=== PATIENT | female | born 1960 | race Caucasian/White ===

== ENCOUNTER 2016-10-13 15:47 | Emergency (ER) | payer OTHER ==
[2016-10-13] MEDS ORDERED: oxyCODONE HCL 5 MG TABLET PO ONE (16:12)
--- NOTE | 2016-10-13 16:15 | ERNOTE ---
Medical Problem HPI - General Chief Complaint: General Assessment Time Seen by Provider: 10/13/16 15:55 Source: patient Exam Limitations: no limitations - Immun/Allergies/Home Medications Immunizations: IMMUNIZATION HX Immunizations Up to Date Yes Allergies/Adverse Reactions: Allergies No Known Allergies Allergy (Unverified 10/13/16 16:08) - History of Present History Narrative: Patient is brought over from the psychiatric office for shortness of breath and problems with her leg. 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 Recently she has been weaned from the speaking valve to wearing a cap on the trach and having oxygen with a nasal canula for so many hours a day. This week she is up to five hour a day of wearing the cap and it was supposed to be changed at 16: 00. She is very anxious and intent that it needs to get changed at 16:00 as she will breath better with being changed to the other valve,so she was send over form the psychiatry office for shortness of breath. Her second concern is her left leg. She hit it on something about five days ago. She has had increasing redness, swelling and pain in the left lan since and is concerned that it might be getting infected. She is not sure why she was in the psych office Review of Systems - Review of Systems Constitutional: Absent: fever ENT: Absent: ear pain Respiratory: Present: shortness of breath. Absent: cough Cardiology: Absent: chest pain Gastrointestinal/Abdominal: Absent: nausea, vomiting, abdominal pain Musculoskeletal: Present: See HPI Neurological: Absent: headache - Patient's Past Medical History Patient History - Medical: Anxiety, Obesity Patient History - Cardiac/Respiratory: Hypertension, Home O2 Use Patient History - Cancer: History Unknown Patient History - Surgical Procedures: Noncontributory Patient History - Other: None - Social History Living Situations: assisted living - Immunizations Immunizations Up to Date: Yes Physical Exam - Physical Exam General Appearance: Present: wd/wn, alert, no apparent distress, anxious, obese Neck: Present: other - trach in place Respiratory: Present: no respiratory distress, no accessory muscle use, lungs clear, decreased breath sounds, other - patient is talking fluently without any signs of distress Cardiovascular/Chest: Present: regular rate, rhythm, no murmur Extremity Exam: Present: normal except - - blood blister on on left lan with surrounding area of erythema and tenderness (about 10cm), no pus, no swelling, no lymphangitis Neurological Exam: Present: alert, oriented, normal mood/affect Skin Exam: Present: normal color, warm/dry ED Progress - Results and Orders Patient's Lab Results:: I have reviewed the patient's lab results. - Vital Signs Patient's Vital Signs:: I have reviewed the patient's vital signs. Vital Signs: Vital Signs 10/13/16 15:57 Temperature 36.8 C Pulse Rate 67 Respiratory 22 H Rate Blood Pressure 129/71 O2 Sat by Pulse 95 Oximetry - X-Ray X-Ray #1 X-Ray: tibula/fibula - no acute findings Interpretation: Reviewed by me - Progress/Reassessment Chief Complaint: General Assessment Progress Note-Subjective: 10/13/16 17:35 patient sleeping comfortably, easily aroused, discussed test results Departure - Departure Clinical Impression: Cellulitis Qualifiers: Site of cellulitis: extremity Site of cellulitis of extremity: lower extremity Laterality: left Qualified Code(s): L03.116 - Cellulitis of left lower limb Disposition: [facility] Condition: Good Instructions: Cellulitis, Adult, [id number] Referrals: Amy Díaz DO [Primary Care Provider] -
[2016-10-13] MEDS ORDERED: oxyCODONE HCL 5 MG TABLET ONE (16:22)
[2016-10-13 16:29] LABS: Hematocrit 37.7 % (37.0-47.0); Hemoglobin 11.9 gm/dL (12.5-16.0); Mean Cell Volume 90.8 fl (78-100); Mean Corpuscular Hemoglobin 28.7 pg (27-31); Mean Corpuscular Hgb Conc 31.6 g/dl (32-36); Mean Platelet Volume 10.2 fl (6.0-9.5); Platelet Count 185 K/mm3 (150-450); Red Blood Count 4.15 M/mm3 (4.2-5.4); Red Cell Distribution Width 14.4 % (11.5-14.0); White Blood Count 7.2 K/mm3 (4.0-10.5)
[2016-10-13 16:35] LABS: Total Cells Counted 100
[2016-10-13 16:42] LABS: Albumin * 2.7 gm/dl (3.4-5.0); Anion Gap 5.8 mmol/L (6.8-13.8); BUN/Creatinine Ratio 25.3 (9.0-21.6); Bilirubin, Total 0.4 mg/dL (0.0-1.1); CRP 8.8 mg/dL (0.0-0.9); Ca. Corrected For Albumin 9.9 mg/dL (8.4-10.2); Calcium * 9.2 mg/dL (7.9-10.9); Potassium 3.8 mmol/L (3.4-4.6); Total Protein 7.7 gm/dL (6.2-8.2)
[2016-10-13 16:54] LABS: Atypical (Reactive) Lymph 3 % (0-2); Band 1 % (0-2.0); Eosinophil 2 % (0-3); Hypochromia 2+; Lymphocyte 9 % (20-51); Monocyte 5 % (0-9); Neutrophil 80 % (42-75); Neutrophil # 5.8 K/mm3 (1.3-6.0); Platelet Estimate Normal (NORMAL)
[2016-10-13] MEDS ORDERED: CEPHALEXIN MONOHYDRATE 250 MG CAPSULE PO ONE (17:35)
[2016-10-13 17:46] VITALS: BP 111/51
[2016-10-13] MEDS ORDERED: CEPHALEXIN MONOHYDRATE 250 MG CAPSULE ONE (17:53)
== END 2016-10-13 18:23 ==
LOC: ER 15:47
DX: R06.02 Shortness of breath (principal); L03.116 Cellulitis of left lower limb; Z99.81 Dependence on supplemental oxygen

== ENCOUNTER 2017-01-07 15:15 | Observation (INO) | payer OTHER ==
[2017-01-07] MEDS ORDERED: ALBUTEROL SULFATE/IPRATROPIUM 3 ML NEBU IH ONE (17:25)
--- NOTE | 2017-01-07 17:54 | HP ---
Chief Complaint - Chief Complaint Date of Service: 01/07/17 Time of Service: 15:30 Chief Complaint: Unhappy History of Present Illness: The patient is a 56 year old female well known to me that resides at the [facility]. Shazia was recently found to have a Kleenex folded up in her room at [facility] with what I was told were Xanax pills. Due to this, the patient's psychiatrist, Dr. Torres, dismissed Shazia as a patient. [facility] and I attempted to set the patient up with another psychiatrist; however, psychiatry in [place] will only accept new patient referrals from PCPs that are [facility] physicians. After talking with Dr. Torres earlier today, he graceously agreed to take the patient back. She presented to Dr. Desai's office today for a follow-up appointment regarding her left LE wound/cellulitis. Apparently, Shazia was quite emotional in Dr. Desai' s office so he came over to my office to inform me of this and I asked him to have Shazia come to my office so I could talk with her. The patient today states that she had green poop and because it was green, she states she was told by staff at [facility] that the green in her poop meant she had drugs in her system. I reassured the patient that there are multiple reasons for her poop to be green. In my office, the patient was very emotional and getting herself worked up so she was admitted to the Hospital overnight for emotional distress and I will ask Dr. Torres to see the patient prior to discharge back to the [facility] in the AM. - Patient's Past Medical History Patient History - Medical: Anxiety, Obesity Patient History - Cardiac/Respiratory: Hypertension, Home O2 Use Patient History - Cancer: History Unknown Patient History - Surgical Procedures: Noncontributory Patient History - Other: None - Family History Mother Family History - Cardiac/Respiratory: History Unknown Family History - Cancer: History Unknown - Social History Smoking Status: Never smoker Have you smoked in the past 12 months: No - Immunizations Immunizations Up to Date: Yes Review Of Systems (GEN) - Review of Systems Generalized/Overall Review: Present: No Symptoms Reported EENTM: Present: No Symptoms Reported Respiratory: Present: Cough - chronic, at baseline, Shortness of Breath - chronic, at baseline Cardiac: Present: No Symptoms Reported Abdominal: Present: No Symptoms Reported Genitourinary: Present: No Symptoms Reported Musculoskeletal: Present: Other - chronic pain, at baseline Neurological: Present: Anxiety Skin: Present: No Symptoms Reported Endocrine: Present: No Symptoms Reported Misc: All systems neg except as marked Immunizations: IMMUNIZATION HX Immunizations Up to Date Yes Allergies/Adverse Reactions: Allergies Allergy/AdvReac Type Severity Reaction Status Date / Time No Known Allergies Allergy Verified 01/07/17 17:47 Home Medications: HOME MEDICATIONS Acetaminophen [Tylenol] 325 mg PO Q6H PRN 01/07/17 [Last Taken Unknown] Acetylcysteine [Mucomyst 20%] 3 ml MC BID 01/07/17 [Last Taken Unknown] Benzocaine/Menthol [Cepacol Sore Throat Lozenge] 1 each PO Q4H PRN 01/07/17 [ Last Taken Unknown] Calcium Carbonate/Vitamin D3 [Calcium 500 + Vit D3 400 Tab] 1 each PO BID [Last Taken Unknown] Carvedilol [Coreg] 12.5 mg PO BID 01/07/17 [Last Taken Unknown] Chlorhexidine Gluconate [Periogard Oral Rinse 0.12%] 5 ml TP BID 01/07/17 [Last Taken Unknown] Chlorthalidone [Hygroton] 25 mg PO DAILY 01/07/17 [Last Taken Unknown] Doxazosin Mesylate [Cardura] 4 mg PO DAILY 01/07/17 [Last Taken Unknown] Famotidine [Pepcid] 20 mg PO BID 01/07/17 [Last Taken Unknown] Ipratropium/Albuterol Sulfate [Iprat-Albut 0.5-3(2.5) mg/3 ml] 3 ml IH Q2H PRN 01/07/17 [Last Taken Unknown] Ipratropium/Albuterol Sulfate [Iprat-Albut 0.5-3(2.5) mg/3 ml] 3 ml IH Q4H 01/07 [Last Taken Unknown] Latanoprost [Xalatan] 1 drop OP HS 01/07/17 [Last Taken Unknown] Liothyronine Sodium [Cytomel] 25 mcg PO DAILY 01/07/17 [Last Taken Unknown] Lisinopril [Zestril] 40 mg PO DAILY 01/07/17 [Last Taken Unknown] Loperamide HCl [Imodium] 2 mg PO Q6H PRN 01/07/17 [Last Taken Unknown] Lorazepam [Ativan] 2 mg PO BID 01/07/17 [Last Taken Unknown] Mag Hydrox/Aluminum Hyd/Simeth [Maalox] 30 ml PO Q4H PRN 01/07/17 [Last Taken Unknown] Methocarbamol 750 mg PO BID 01/07/17 [Last Taken Unknown] Mirtazapine [Remeron] 45 mg PO HS 01/07/17 [Last Taken Unknown] Multivit,Tx with Iron,Minerals [Thera-M] 1 each PO DAILY 01/07/17 [Last Taken Unknown] Ondansetron HCl [Zofran] 4 mg PO Q4H PRN 01/07/17 [Last Taken Unknown] Oxycodone HCl 5 mg PO DAILY 01/07/17 [Last Taken Unknown] Oxycodone HCl 5 mg PO Q4H PRN 01/07/17 [Last Taken Unknown] Pyridostigmine [place] [Mestinon] 60 mg PO QID 01/07/17 [Last Taken Unknown] Saliva Stimulant Agents Comb.3 [Biotene Moisturizing Mouth] 2 sprays PO BID PRN 01/07/17 [Last Taken Unknown] Timolol [Betimol] 1 drop OP DAILY 01/07/17 [Last Taken Unknown] Warfarin Sodium [Jantoven] 3 mg PO HS 01/07/17 [Last Taken Unknown] amLODIPine BESYLATE [Norvasc] 10 mg PO DAILY 01/07/17 [Last Taken Unknown] fentaNYL [Fentanyl] 1 each TD Q3D 01/07/17 [Last Taken 01/05/17] guaiFENesin [Mucinex] 600 mg PO Q12H 01/07/17 [Last Taken Unknown] Exam - Exam Vital Signs: Vital Signs - Last Taken Temp 36.4 C L 01/07/17 15:57 Pulse 69 01/07/17 17:32 Resp 18 01/07/17 17:32 BP 122/60 01/07/17 15:57 Pulse Ox 97 01/07/17 17:32 Constitutional: Present: Alert, Oriented x3, Cooperative, Obese ENT Exam: Present: hearing grossly normal, moist mucous membranes Eye Exam: bilateral eye: normal inspection, EOMI Respiratory: Present: other - Coarse breath sounds bilaterally Cardiovascular/Chest: Present: regular rate, rhythm, edema Abdomen: Present: soft, nontender, nondistended, obese Neurologic: Present: alert, oriented x 3 Appearance: Present: no memory impairment Eye contact: Present: increased rate of speech Thoughts: Present: delusions, flight of ideas, paranoid, persecution Assessment/Plan - Narrative Narrative: Patient will be admitted to observation overnight. Psychiatrist, Dr. Torres, consulted. I greatly appreciate his assistance in the care of this complicated patient. The plan is for the patient to be discharged back to [facility] tomorrow AM. - Assessment/Plan (1) Emotional instability in adult Problem: Acute (2) Stress reaction, emotional Problem: Acute
[2017-01-07] MEDS ORDERED: ONDANSETRON HCL 4 MG TABLET PO PRN (17:55)
[2017-01-07] MEDS ORDERED: LOPERAMIDE HCL 2 MG CAPSULE PO PRN (17:55)
[2017-01-07] MEDS ORDERED: ACETAMINOPHEN 325 MG TABLET PO PRN (17:55)
[2017-01-07] MEDS ORDERED: MAG HYDROX/ALUMINUM HYD/SIMETH 148 ML BTL PO PRN (17:55)
[2017-01-07] MEDS ORDERED: Lytes/Yerba Santa 240 APPL BTL MM PRN (17:55)
[2017-01-07] MEDS ORDERED: ALBUTEROL SULFATE/IPRATROPIUM 3 ML NEBU IH PRN (17:55)
[2017-01-07] MEDS ORDERED: BENZOCAINE/MENTHOL 16 EACH BOX MM PRN (17:55)
[2017-01-07] MEDS ORDERED: ALBUTEROL SULFATE/IPRATROPIUM 3 ML NEBU IH SCH (18:00)
[2017-01-07] MEDS: oxyCODONE HCL 5 MG TABLET PO PRN (18:55)
[2017-01-07] MEDS ORDERED: fentaNYL 25 MCG PATCH.TD72 TD SCH ×2 (19:00)
[2017-01-07] MEDS ORDERED: guaiFENesin/DEXTROMETHORPHAN 118 ML BTL PO PRN (19:33)
[2017-01-07] MEDS ORDERED: WARFARIN SODIUM 3 MG TABLET PO ONE (20:00)
[2017-01-07] MEDS ORDERED: WARFARIN SODIUM 1 MG TABLET ONE (20:08)
[2017-01-07] MEDS ORDERED: CARVEDILOL 6.25 MG TABLET ONE (20:08)
[2017-01-07] MEDS: LORazepam 1 MG TABLET PO SCH (20:22)
[2017-01-07] MEDS: FAMOTIDINE 20 MG TABLET PO SCH (20:22)
[2017-01-07] MEDS: CALCIUM CARBONATE/VITAMIN D3 1 TAB TABLET PO SCH (20:27)
[2017-01-07] MEDS: CARVEDILOL 12.5 MG TABLET PO SCH (20:27)
[2017-01-07] MEDS ORDERED: LATANOPROST 25 DROP BTL OP SCH (21:00)
[2017-01-07] MEDS ORDERED: ACETYLCYSTEINE 200 MG/ML VIAL MC SCH (21:00)
[2017-01-07] MEDS ORDERED: MIRTAZAPINE 15 MG TABLET PO SCH (21:00)
[2017-01-07] MEDS ORDERED: ACETYLCYSTEINE 200 MG/ML VIAL ONE (21:48)
[2017-01-07] MEDS: ALBUTEROL SULFATE/IPRATROPIUM 3 ML NEBU IH SCH (22:10)
[2017-01-07] MEDS: PYRIDOSTIGMINE BROMIDE 60 MG TABLET PO SCH (22:24)
[2017-01-07] MEDS: METHOCARBAMOL 500 MG TABLET PO SCH (22:24)
[2017-01-08] MEDS: ALBUTEROL SULFATE/IPRATROPIUM 3 ML NEBU IH SCH ×4 (03:00→14:34)
[2017-01-08 05:36] LABS: INR 1.93 INR (0.90-1.10); Prothrombin Time (Patient) 20.1 Seconds (9.4-11.4)
[2017-01-08] MEDS ORDERED: ACETYLCYSTEINE 200 MG/ML VIAL MC SCH (07:00)
--- NOTE | 2017-01-08 07:22 | DS ---
(1) Emotional instability in adult Problem: Acute (2) Stress reaction, emotional Problem: Acute Description of Stay: ADMISSION DATE: 01/07/2017 DISCHARGE DATE: 01/08/2017 ADMISSION HPI: The patient is a 56 year old female well known to me that resides at the [facility] Unit at [facility]. Shazia was recently found to have a Kleenex folded up in her room at [facility] with what I was told were Xanax pills. Due to this, the patient's psychiatrist, Dr. Torres, dismissed Shazia as a patient. [facility] and I attempted to set the patient up with another psychiatrist; however, psychiatry in [place] will only accept new patient referrals from PCPs that are [facility] physicians. After talking with Dr. Torres earlier today, he graceously agreed to take the patient back. She presented to Dr. Desai's office today for a follow-up appointment regarding her left LE wound/cellulitis. Apparently, Shazia was quite emotional in Dr. Desai' s office so he came over to my office to inform me of this and I asked him to have Shazia come to my office so I could talk with her. The patient today states that she had green poop and because it was green, she states she was told by staff at [facility] that the green in her poop meant she had drugs in her system. I reassured the patient that there are multiple reasons for her poop to be green. In my office, the patient was very emotional and getting herself worked up so she was admitted to the Hospital overnight for emotional distress and I will ask Dr. Torres to see the patient prior to discharge back to the [facility] in the AM. HOSPITAL COURSE: The patient had an uneventful hospital stay. She was evaluated by Dr. Torres during her admission. No changes in medications and no changes in her current cares at [facility] were changed. Patient is in stable condition for discharge back to [facility]. FOLLOW-UP APPOINTMENTS: -PCP, Dr. Díaz, will see the patient at [facility] within the next 14 days -Follow-up with Psychiatrist, Dr. Torres, in ~2 months NEW OR CHANGED MEDICATIONS: NONE DISCONTINUED MEDICATIONS: NONE RADIOLOGY REPORTS: NONE Procedures Performed: none Discharge Disposition: [facility] Disposition: [facility] Condition: Stable Discharge Activity: Activity as tolerated Discharge Diet: Resume usual diet Half-Way Therapy: Physicial Therapy, Occupation Therapy, Speech Therapy Referrals: Amy Díaz DO [Primary Care Provider] - Problem Oriented Discharge Instructions to Patient/Family: Stress and Stress Management Additional Patient Instructions (free text): -PCP, Dr. Díaz, will see the patient at [facility] within the next 14 days -Follow-up with Psychiatrist, Dr. Torres, per his recommendation Complete Home Medications List: Complete Home Medication List: Acetaminophen [Tylenol] 325 mg PO Q6H PRN 01/07/17 Acetylcysteine [Mucomyst 20%] 3 ml MC BID 01/07/17 Benzocaine/Menthol [Cepacol Sore Throat Lozenge] 1 each PO Q4H PRN 01/07/17 Calcium Carbonate/Vitamin D3 [Calcium 500-Vit D3 400 Tablet] 1 each PO BID 01/07 Carvedilol [Coreg] 12.5 mg PO BID 01/07/17 Chlorhexidine Gluconate [Periogard Oral Rinse 0.12%] 5 ml TP BID 01/07/17 Chlorthalidone [Hygroton] 25 mg PO DAILY 01/07/17 Doxazosin Mesylate [Cardura] 4 mg PO DAILY 01/07/17 Famotidine [Pepcid] 20 mg PO BID 01/07/17 Ipratropium/Albuterol Sulfate [Iprat-Albut 0.5-3(2.5) mg/3 ml] 3 ml IH Q2H PRN 01/07/17 Ipratropium/Albuterol Sulfate [Iprat-Albut 0.5-3(2.5) mg/3 ml] 3 ml IH Q4H 01/07 Latanoprost [Xalatan] 1 drop OP HS 01/07/17 Liothyronine Sodium [Cytomel] 25 mcg PO DAILY 01/07/17 Lisinopril [Zestril] 40 mg PO DAILY 01/07/17 Loperamide HCl [Imodium] 2 mg PO Q6H PRN 01/07/17 Lorazepam [Ativan] 2 mg PO BID 01/07/17 Mag Hydrox/Aluminum Hyd/Simeth [Maalox] 30 ml PO Q4H PRN 01/07/17 Methocarbamol 750 mg PO BID 01/07/17 Mirtazapine [Remeron] 45 mg PO HS 01/07/17 Multivit,Tx with Iron,Minerals [Thera-M] 1 each PO DAILY 01/07/17 Ondansetron HCl [Zofran] 4 mg PO Q4H PRN 01/07/17 Oxycodone HCl 5 mg PO DAILY 01/07/17 Oxycodone HCl 5 mg PO Q4H PRN 01/07/17 Pyridostigmine [place] [Mestinon] 60 mg PO QID 01/07/17 Saliva Stimulant Agents Comb.3 [Biotene Moisturizing Mouth] 2 sprays PO BID PRN 01/07/17 Timolol [Betimol] 1 drop OP DAILY 01/07/17 Warfarin Sodium [Jantoven] 3 mg PO HS 01/07/17 amLODIPine BESYLATE [Norvasc] 10 mg PO DAILY 01/07/17 fentaNYL [Fentanyl] 1 each TD Q3D 01/07/17 guaiFENesin [Mucinex] 600 mg PO Q12H 01/07/17
[2017-01-08] MEDS: ACETYLCYSTEINE 200 MG/ML VIAL IH SCH ×2 (07:30→09:49)
[2017-01-08 07:39] VITALS: BP 124/78
[2017-01-08] MEDS: oxyCODONE HCL 5 MG TABLET PO PRN ×2 (07:44→12:38)
[2017-01-08] MEDS ORDERED: LISINOPRIL 40 MG TABLET PO SCH (09:00)
[2017-01-08] MEDS ORDERED: CHLORHEXIDINE GLUCONATE 15 ML UDC MM SCH (09:00)
[2017-01-08] MEDS ORDERED: TIMOLOL MALEATE 50 DROP BTL OP SCH (09:00)
[2017-01-08] MEDS ORDERED: MULTIVIT-MIN/FA/LYCOPEN/LUTEIN 1 TAB TABLET PO SCH (09:00)
[2017-01-08] MEDS: CALCIUM CARBONATE/VITAMIN D3 1 TAB TABLET PO SCH (09:00)
[2017-01-08] MEDS ORDERED: LIOTHYRONINE SODIUM 5 MCG TABLET PO SCH (09:00)
[2017-01-08] MEDS ORDERED: CHLORTHALIDONE 25 MG TABLET PO SCH (09:00)
[2017-01-08] MEDS ORDERED: DOXAZOSIN MESYLATE 2 MG TABLET PO SCH (09:00)
[2017-01-08] MEDS ORDERED: amLODIPine BESYLATE 10 MG TABLET PO SCH (09:00)
[2017-01-08] MEDS ORDERED: oxyCODONE HCL 5 MG TABLET PO SCH (09:00)
[2017-01-08] MEDS: FAMOTIDINE 20 MG TABLET PO SCH (09:01)
[2017-01-08] MEDS: METHOCARBAMOL 500 MG TABLET PO SCH (09:02)
[2017-01-08] MEDS: PYRIDOSTIGMINE BROMIDE 60 MG TABLET PO SCH ×2 (09:02→12:39)
[2017-01-08] MEDS: CARVEDILOL 12.5 MG TABLET PO SCH (09:02)
[2017-01-08] MEDS: LORazepam 1 MG TABLET PO SCH (09:04)
--- NOTE | 2017-01-08 10:44 | CONS ---
HPI - General Date of Service: 01/08/17 Narrative: IDENTIFYING INFORMATION Ashleigh Chaney is an unemployed 56 year old female resident at [facility] admitted yesterday under the service of Amy Díaz D.O., her Product Developer, with whom I was treating her at said facility.I was asked in for a Psychiatric Consultation. BACKGROUND HISTORY To avoid redundancy, and because our Med-Surg Inpatient staff have no access to my Outpatient [place] Notes, I am enclosing the Initial Diagnostic Summary and the last three notes of the past week when we terminated our relationship with Ms. Chaney for violation of our Doctor-Patient Treatment Contract. I am accepting her back as a patient at the request of Dr. Díaz. I first saw Ms. Chaney and her romantic hydrant setter on October 14, 2015, at the request of [facility] with the chief complaints of: 1-From [facility] staff: repeated verbal aggression and noncompliance. 2-Patient: -"People seem to do everything they can to get me." -"I find it hard to trust anyone." -"I have a hard time forgiving people." -"I cannot seem to get close to people." -"I'd rather be alone than to worry about the hurt of being involved with others." -"I hate to be around other people and will not do it, unless I have to." -"People tell me I have strange thoughts." Because she repeatedly claimed , in all of our sessions , that "nobody has ever explained my diagnoses or any of my medications", I have asked her and her hydrant setter to: 1-Bring a tape recorder and tape all of our sessions or 2-Take down notes. At least two times in that span of time AND last week, when I announced the termination of our relationship, I reviewed all of her files and discussed all of her previous and present diagnoses. After I finished that, she insisted that I NEVER discussed those in our past visits , despite her hydrant setter's reminding her that I surely did and that he was , indeed, present the whole time that happened. Today, the conversation in her hospital room in the presence of her RN and PLANNING AIDE was like repeated scenes from "hog Day" with Geovani Sewell and Prabha Multani: A repeat of events and scenes of the morning before. I asked her to avail herself of the private cellphone number I always give all my patients next time the staff ignores her complaint. INTERVIEW Well-oriented in all four spheres. Judgment is extremely poor and totally impervious to all presentations of verifiable facts and sources of independent consensual validations. This woman IS psychotic. What makes the situation worse is that her venom is so explosive and insistent that it is , literally, impossible to ignore her. DIAGNOSES AND RECOMMENDATIONS 1-Munchhausen Syndrome 2-Bipolar affective disorder, rapid, rapid cycling type 3-Borderline personality disorder RTC to my Outpatient Clinic next month. Total time spent: 1 1/2 hours - History of Present Illness Allergies/Adverse Reactions: Allergies No Known Allergies Allergy (Verified 01/07/17 17:47) Home Medications: Home Medications Medication Instructions Recorded Last Taken Acetaminophen [Tylenol] 325 mg PO Q6H PRN 01/07/17 Unknown Acetylcysteine [Mucomyst 20%] 3 ml MC BID 01/07/17 Unknown Benzocaine/Menthol [Cepacol Sore 1 each PO Q4H PRN 01/07/17 Unknown Throat Lozenge] Calcium Carbonate/Vitamin D3 1 each PO BID 01/07/17 Unknown [Calcium 500-Vit D3 400 Tablet] Carvedilol [Coreg] 12.5 mg PO BID 01/07/17 Unknown Chlorhexidine Gluconate [Periogard 5 ml TP BID 01/07/17 Unknown Oral Rinse 0.12%] Chlorthalidone [Hygroton] 25 mg PO DAILY 01/07/17 Unknown Doxazosin Mesylate [Cardura] 4 mg PO DAILY 01/07/17 Unknown Famotidine [Pepcid] 20 mg PO BID 01/07/17 Unknown Ipratropium/Albuterol Sulfate 3 ml IH Q2H PRN 01/07/17 Unknown [Iprat-Albut 0.5-3(2.5) mg/3 ml] Ipratropium/Albuterol Sulfate 3 ml IH Q4H 01/07/17 Unknown [Iprat-Albut 0.5-3(2.5) mg/3 ml] Latanoprost [Xalatan] 1 drop OP HS 01/07/17 Unknown Liothyronine Sodium [Cytomel] 25 mcg PO DAILY 01/07/17 Unknown Lisinopril [Zestril] 40 mg PO DAILY 01/07/17 Unknown Loperamide HCl [Imodium] 2 mg PO Q6H PRN 01/07/17 Unknown Lorazepam [Ativan] 2 mg PO BID 01/07/17 Unknown Mag Hydrox/Aluminum Hyd/Simeth 30 ml PO Q4H PRN 01/07/17 Unknown [Maalox] Methocarbamol 750 mg PO BID 01/07/17 Unknown Mirtazapine [Remeron] 45 mg PO HS 01/07/17 Unknown Multivit,Tx with Iron,Minerals 1 each PO DAILY 01/07/17 Unknown [Thera-M] Ondansetron HCl [Zofran] 4 mg PO Q4H PRN 01/07/17 Unknown Oxycodone HCl 5 mg PO DAILY 01/07/17 Unknown Oxycodone HCl 5 mg PO Q4H PRN 01/07/17 Unknown Pyridostigmine [place] [Mestinon] 60 mg PO QID 01/07/17 Unknown Saliva Stimulant Agents Comb.3 2 sprays PO BID PRN 01/07/17 Unknown [Biotene Moisturizing Mouth] Timolol [Betimol] 1 drop OP DAILY 01/07/17 Unknown Warfarin Sodium [Jantoven] 3 mg PO HS 01/07/17 Unknown amLODIPine BESYLATE [Norvasc] 10 mg PO DAILY 01/07/17 Unknown fentaNYL [Fentanyl] 1 each TD Q3D 01/07/17 01/05/17 guaiFENesin [Mucinex] 600 mg PO Q12H 01/07/17 Unknown - Patient's Past Medical History Patient History - Medical: Anxiety, Obesity Patient History - Cardiac/Respiratory: Hypertension, Home O2 Use Patient History - Cancer: History Unknown Patient History - Surgical Procedures: Noncontributory Patient History - Other: None - Family History Mother Family History - Cardiac/Respiratory: History Unknown Family History - Cancer: History Unknown - Social History Living Situations: retirement Abuse History: No History of abuse Psych History: Hx of Anxiety, Hx of Depression Smoking Status: Never smoker Have you smoked in the past 12 months: No Alcohol Use: none Drug Use: none - Immunizations Immunizations Up to Date: Yes Medications - Medications Current Medications: Current Medications Acetaminophen (Tylenol) 325 mg PO Q6H PRN PRN Reason: Pain/Fever Stop: 02/06/17 17:56 Last Admin: 01/07/17 19:42 Dose: 325 mg Acetylcysteine (Mucomyst 20%) 600 mg IH BID JESUS MANUEL Stop: 02/07/17 07:01 Last Admin: 01/08/17 09:49 Dose: Not Given Albuterol/Ipratropium (Duoneb 2.5-0.5mg/3ml Soln) 3 ml IH Q4HRT JESUS MANUEL Stop: 02/06/17 23:01 Last Admin: 01/08/17 07:29 Dose: 3 ml Amlodipine Besylate (Norvasc) 10 mg PO DAILY JESUS MANUEL Stop: 02/07/17 09:01 Last Admin: 01/08/17 09:00 Dose: 10 mg Calcium/Vitamin D (Calcarb 600 With Vitamin D) 1 tab PO BID JESUS MANUEL Stop: 02/06/17 21:01 Last Admin: 01/08/17 09:00 Dose: 1 tab Carvedilol (Coreg) 12.5 mg PO BID JESUS MANUEL Stop: 02/06/17 21:01 Last Admin: 01/08/17 09:02 Dose: 12.5 mg Chlorhexidine Gluconate (Periogard Oral Rinse 0.12%) 15 ml MM DAILY JESUS MANUEL Stop: 02/07/17 09:01 Last Admin: 01/08/17 09:06 Dose: 15 ml Chlorthalidone (Hygroton) 25 mg PO DAILY JESUS MANUEL Stop: 02/07/17 09:01 Last Admin: 01/08/17 09:04 Dose: 25 mg Doxazosin Mesylate (Cardura) 4 mg PO DAILY JESUS MANUEL Stop: 02/07/17 09:01 Last Admin: 01/08/17 09:00 Dose: 4 mg Famotidine (Pepcid) 20 mg PO BID JESUS MANUEL Stop: 02/06/17 21:01 Last Admin: 01/08/17 09:01 Dose: 20 mg Guaifenesin (Mucinex) 600 mg PO Q12H JESUS MANUEL Stop: 02/06/17 18:01 Last Admin: 01/08/17 07:42 Dose: Not Given Guaifenesin/Dextromethorphan (Robitussin-Dm) 10 ml PO Q4H PRN PRN Reason: Cough Stop: 02/06/17 19:34 Last Admin: 01/07/17 20:22 Dose: 10 ml Latanoprost (Xalatan) 1 drop OP HS JESUS MANUEL Stop: 02/06/17 21:01 Last Admin: 01/07/17 20:22 Dose: 1 drop Liothyronine Sodium (Cytomel) 25 mcg PO DAILY JESUS MANUEL Stop: 02/07/17 09:01 Last Admin: 01/08/17 09:02 Dose: 25 mcg Lisinopril (Zestril) 40 mg PO DAILY JESUS MANUEL Stop: 02/07/17 09:01 Last Admin: 01/08/17 09:01 Dose: 40 mg Lorazepam (Ativan) 2 mg PO BID JESUS MANUEL Stop: 02/06/17 21:01 Last Admin: 01/08/17 09:04 Dose: 2 mg Methocarbamol (Robaxin) 750 mg PO BID JESUS MANUEL Stop: 02/06/17 21:01 Last Admin: 01/08/17 09:02 Dose: 750 mg Mirtazapine (Remeron) 45 mg PO HS JESUS MANUEL Stop: 02/06/17 21:01 Last Admin: 01/07/17 20:22 Dose: 45 mg Multivitamins ([facility]) 1 tab PO DAILY JESUS MANUEL Stop: 02/07/17 09:01 Last Admin: 01/08/17 09:00 Dose: 1 tab Oxycodone HCl (Oxycodone) 5 mg PO DAILY JESUS MANUEL Stop: 02/07/17 09:01 Last Admin: 01/08/17 09:01 Dose: Not Given Oxycodone HCl (Oxycodone) 5 mg PO Q4H PRN PRN Reason: Moderate Pain Last Admin: 01/08/17 07:44 Dose: 5 mg Pyridostigmine [place] (Mestinon) 60 mg PO QID JESUS MANUEL Stop: 02/06/17 21:01 Last Admin: 01/08/17 09:02 Dose: 60 mg Physical Examination - Exam Vital Signs: Vital Signs - Last Taken Temp 36.8 C 01/08/17 07:37 Pulse 76 01/08/17 09:02 Resp 20 01/08/17 07:39 BP 124/78 01/08/17 09:02 Pulse Ox 94 01/08/17 07:37 O2 Oxygen Delivery Method Vent - Results and Findings: Lab/Microbiology results last 24 hrs: Abnormal/Pending Laboratory Last 24 HRS 01/08/17 05:10 PT 20.1 H INR (Anticoag Therapy) 1.93 H
[2017-01-08] MEDS ORDERED: BENZOCAINE/MENTHOL 16 EACH BOX MM PRN (11:30)
[2017-01-08] MEDS ORDERED: Lytes/Yerba Santa 240 APPL BTL MM PRN (11:30)
[2017-01-08] MEDS ORDERED: WARFARIN SODIUM 3 MG TABLET PO SCH (17:00)
[2017-01-08] MEDS ORDERED: fentaNYL 25 MCG PATCH.TD72 TD SCH (19:00)
[2017-01-09] MEDS ORDERED: TIMOLOL MALEATE 50 DROP BTL OP SCH (09:00)
[2017-01-11] MEDS ORDERED: REMOVE PATCH 1 PATCH PATCH TP SCH (19:00)
== END 2017-01-08 15:00 ==
LOC: MS 15:15
PROVIDERS: ADMIT Internal Medicine; ATTEND Internal Medicine
DX: F43.0 Acute stress reaction (principal); G70.00 Myasthenia gravis without (acute) exacerbation; F31.5 Bipolar disorder, current episode depressed, severe, with psychotic features; F60.3 Borderline personality disorder; F68.10 Factitious disorder imposed on self, unspecified; I10 Essential (primary) hypertension; L03.116 Cellulitis of left lower limb; Z68.39 Body mass index [BMI] 39.0-39.9, adult; Z91.14 Patient's other noncompliance with medication regimen; Z99.11 Dependence on respirator [ventilator] status
CPT/HCPCS: 36415; 85610; 87081; 94640; G0378; G0379

== ENCOUNTER 2017-01-24 12:55 | Emergency (ER) | payer OTHER ==
[2017-01-24 13:27] LABS: Urine Bilirubin Negative (NEGATIVE); Urine Blood 25 /ul (NEGATIVE); Urine Ketone Negative (NEGATIVE); Urine Nitrite Negative (NEGATIVE); Urine Protein 100 mg/dL (NEGATIVE); Urine Specific Gravity 1.025 SP.GR. (1.005-1.010); Urine Urobilinogen Normal (NORMAL); Urine pH 5.5 pH (5.0-7.0)
[2017-01-24 13:35] LABS: Urine Appearance Clear; Urine Color Yellow
[2017-01-24 13:36] LABS: Urine Bacteria None Seen; Urine RBC 0-5 /hpf (0-5); Urine WBC None Seen /hpf (0-5)
--- NOTE | 2017-01-24 14:19 | ERNOTE ---
Back Pain ER HPI Date of Service: 01/24/17 Presenting Symptoms: other - Flank pain Time Seen by Provider: 01/24/17 13:30 Source: patient, RN notes reviewed, past records Exam Limitations: other - mental status Immunizations: IMMUNIZATION HX Immunizations Up to Date Yes History of Influenza Vaccine Yes Hx Pneumococcal Vaccination Yes Allergies/Adverse Reactions: Allergies morphine Adverse Reaction (Verified 01/24/17 13:16) Home Medications: HOME MEDICATIONS Acetaminophen [Tylenol] 325 mg PO Q6H PRN 01/07/17 [Last Taken Unknown] Acetylcysteine [Mucomyst 20%] 3 ml MC BID 01/07/17 [Last Taken Unknown] Benzocaine/Menthol [Cepacol Sore Throat Lozenge] 1 each PO Q4H PRN 01/07/17 [ Last Taken Unknown] Calcium Carbonate/Vitamin D3 [Calcium 500-Vit D3 400 Tablet] 1 each PO BID 01/07 [Last Taken Unknown] Carvedilol [Coreg] 12.5 mg PO BID 01/07/17 [Last Taken Unknown] Chlorhexidine Gluconate [Periogard Oral Rinse 0.12%] 5 ml TP BID 01/07/17 [Last Taken Unknown] Chlorthalidone [Hygroton] 25 mg PO DAILY 01/07/17 [Last Taken Unknown] Doxazosin Mesylate [Cardura] 4 mg PO DAILY 01/07/17 [Last Taken Unknown] Famotidine [Pepcid] 20 mg PO BID 01/07/17 [Last Taken Unknown] Ipratropium/Albuterol Sulfate [Iprat-Albut 0.5-3(2.5) mg/3 ml] 3 ml IH Q2H PRN 01/07/17 [Last Taken Unknown] Ipratropium/Albuterol Sulfate [Iprat-Albut 0.5-3(2.5) mg/3 ml] 3 ml IH Q4H 01/07 [Last Taken Unknown] Latanoprost [Xalatan] 1 drop OP HS 01/07/17 [Last Taken Unknown] Liothyronine Sodium [Cytomel] 25 mcg PO DAILY 01/07/17 [Last Taken Unknown] Lisinopril [Zestril] 40 mg PO DAILY 01/07/17 [Last Taken Unknown] Loperamide HCl [Imodium] 2 mg PO Q6H PRN 01/07/17 [Last Taken Unknown] Lorazepam [Ativan] 2 mg PO BID 01/07/17 [Last Taken Unknown] Mag Hydrox/Aluminum Hyd/Simeth [Maalox] 30 ml PO Q4H PRN 01/07/17 [Last Taken Unknown] Methocarbamol 750 mg PO BID 01/07/17 [Last Taken Unknown] Mirtazapine [Remeron] 45 mg PO HS 01/07/17 [Last Taken Unknown] Multivit,Tx with Iron,Minerals [Thera-M] 1 each PO DAILY 01/07/17 [Last Taken Unknown] Ondansetron HCl [Zofran] 4 mg PO Q4H PRN 01/07/17 [Last Taken Unknown] Oxycodone HCl 5 mg PO DAILY 01/07/17 [Last Taken Unknown] Pyridostigmine [place] [Mestinon] 60 mg PO QID 01/07/17 [Last Taken Unknown] Saliva Stimulant Agents Comb.3 [Biotene Moisturizing Mouth] 2 sprays PO BID PRN 01/07/17 [Last Taken Unknown] Timolol [Betimol] 1 drop OP DAILY 01/07/17 [Last Taken Unknown] Warfarin Sodium [Jantoven] 3 mg PO HS 01/07/17 [Last Taken Unknown] amLODIPine BESYLATE [Norvasc] 10 mg PO DAILY 01/07/17 [Last Taken Unknown] guaiFENesin [Mucinex] 600 mg PO Q12H 01/07/17 [Last Taken Unknown] fentaNYL [Duragesic] 50 mcg TD Q72H 01/24/17 [Last Taken Unknown] Narrative: 56 year old female ambulatory to the ED from the [facility] for a possible kidney stone. She reports bilateral flank pain that has been present for some time. She has had renal calculi in the past and underwent lithotripsy approximately 15 years ago. She reports that she has difficulty urinating and very little output, and then soon after reports urinary frequency and being up all night urinating. The patient has a history of psychiatric problems. She is difficult to obtain a history from. She starts describing her current problem, but then trails off talking about her pain medications. The pain she is reporting is in her lumbar region bilaterally, not in her flanks. She has a history of back problems as well. Location of pain: Reports: lower back, no radiation Prior Treament: Reports: recently seen, treated by physician, similar symptoms before Review of Systems - Narrative Narrative: Unable to obtain ROS due to patient's psychiatric state - Review of Systems Constitutional: Present: no symptoms reported EYE: Present: no symptoms reported ENT: Present: no symptoms reported Respiratory: Present: no symptoms reported Cardiology: Present: no symptoms reported Gastrointestinal/Abdominal: Present: no symptoms reported Genitourinary: Present: See HPI Musculoskeletal: Present: back pain Skin: Present: no symptoms reported Neurological: Present: no symptoms reported Endocrine: Present: no symptoms reported Hematologic/Lymphatic: Present: no symptoms reported Psych: Present: no symptoms reported - Patient's Past Medical History Patient History - Medical: Anxiety, Bipolar, Chronic Pain, Depression, Obesity Patient History - Cardiac/Respiratory: Hypertension, Home O2 Use, Other - Respiratory failure, Ventilator dependent at night Patient History - Cancer: No Hx of Cancer Patient History - Surgical Procedures: , Hysterectomy, Pacemaker, Other - Tracheostomy, Thymectomy by mediastinotomy, Superior vena cava stent, Orthopedic Patient History - Other: None LMP (females 10-50): hysterectomy - Family History Mother Family History - Cardiac/Respiratory: History Unknown Family History - Cancer: History Unknown - Social History Living Situations: residential Abuse History: No History of abuse Psych History: Hx of Anxiety, Hx of Depression Smoking Status: Never smoker Alcohol Use: none Drug Use: none - Immunizations Immunizations Up to Date: Yes Hx Pneumococcal Vaccination: Yes History of Influenza Vaccine: Yes Physical Exam - Physical Exam General Appearance: Present: wd/wn, alert, no apparent distress, obese Respiratory: Present: no respiratory distress, no accessory muscle use, decreased breath sounds, expiration (prolonged), other - On O2 at 2 liters, tracheostomy Cardiovascular/Chest: Present: regular rate, rhythm, no murmur Back Exam: Present: no CVA tenderness, no vertebral tenderness, other - Tenderness in bilateral paraspinal lumbar region muscles Extremity Exam: Present: normal inspection Neurological Exam: Present: alert, oriented, no motor/sensory deficits. Absent : normal mood/affect Skin Exam: Present: normal color, warm/dry ED Progress - Results and Orders Patient's Lab Results:: I have reviewed the patient's lab results. - Vital Signs Patient's Vital Signs:: I have reviewed the patient's vital signs. Vital Signs: Vital Signs 01/24/17 13:08 Temperature 36.1 C L Pulse Rate 64 Respiratory 18 Rate Blood Pressure 155/86 O2 Sat by Pulse 94 Oximetry - CT/Ultrasound CT/Ultrasound Narrative: Stone protocol CT: IMPRESSION: 1. Questionable small punctate calcifications in the expected location of the junction of the mid and distal left ureter, without definite signs of obstructive uropathy. Clinical correlation is advised. 2. No evidence for intrarenal calcifications or definite renal mass. 3. Incidental note of superior vena cava stent, and findings suggestive of left greater and right bilateral breast edema, and abdominal wall venous collaterals. Correlate clinically for chronic SVC obstruction. Otherwise, consider potential breast pathology to include mastitis or even malignancy. Additional comments and limitations are as above. - Progress/Reassessment Chief Complaint: Back Pain Progress:: Unchanged Progress Note-Subjective: 01/24/17 14:56 Patient remains adamant that she has a kidney stone. She is extremely difficult to reason with. Dr. Barron contacted regarding incidental findings of breast edema that could indicate an underlying problem. She sees the patient in 2 days when she makes rounds at the [facility]. Departure Clinical Impression: Feared complaint without diagnosis, Emotional instability in adult Back pain, chronic Qualifiers: Back pain location: low back pain Back pain laterality: bilateral Sciatica presence: unspecified whether sciatica present Qualified Code(s): M54.5 - Low back pain - Departure Disposition: Home Follow Up Needed Condition: Stable Additional Instructions: CONTINUE YOUR MEDICATIONS DIRECTED DR. BARRON WILL SEE YOU WHEN SHE MAKES ROUNDS ON Tuesday01/26/17 Referrals: Amy Barron DO [Primary Care Provider] -
[2017-01-24 14:38] VITALS: BP 118/65
[2017-01-24] MEDS ORDERED: ALBUTEROL SULFATE/IPRATROPIUM 3 ML NEBU IH ONE ×2 (14:38)
--- NOTE | 2017-01-24 14:47 | PN ---
Dictated Progress Note - Date and Time Seen: Date: 01/24/17 Time: 14:43 - Progress Note Narrative: Vital Signs - Last Taken Temp 36.7 C 01/24/17 14:36 Pulse 63 01/24/17 14:36 Resp 18 01/24/17 14:36 BP 118/65 01/24/17 14:36 Pulse Ox 100 01/24/17 14:36 Abnormal/Pending Laboratory Last 24 HRS 01/24/17 13:18 Urine Protein 100 H Urine Blood 25 H Prot Sulfosalicylic Acd 2+ H She has been seen for infected hematoma of left anterior lower leg, with 1/4" AMD wick changes in the office. Seen here today in conjunction with ER visit. No leg complaints, dressing intact. AMD wick removed. Cavity is small, will not support wick, so 2x2's and paper tape applied. IMPRESSION: Infected hematoma left loer leg, should progress to complete healing with simple dressing changes RECOMMEND: May shower and wound can get wet. Redress daily with 2x2's or large bandaid until healed. Call for questions or concerns RTC on prn basis
== END 2017-01-24 15:15 | disposition home or self-care (01) ==
LOC: ER 12:55
DX: Z71.1 Person with feared health complaint in whom no diagnosis is made (principal); F60.3 Borderline personality disorder; M54.5 Low back pain; G89.29 Other chronic pain; I10 Essential (primary) hypertension; Z79.01 Long term (current) use of anticoagulants; F41.9 Anxiety disorder, unspecified; Z99.11 Dependence on respirator [ventilator] status; Z95.828 Presence of other vascular implants and grafts